=== PATIENT | female | born 1985 | race Caucasian/White ===

== ENCOUNTER 2016-06-11 18:22 | Emergency (ER) | payer OTHER ==
[~2016-06-11] VITALS: Ht 167.6 cm; Wt 81.1 kg
[~2016-06-11 18:22] MED LIST: AUGMENTIN875 MG PO; CHROMAGEN,1 CAPSULE PO; IBUPROFEN800 MG PO; INDOCIN25 MG PO; LIDOCAINE20 MG/1 M5 PO; METHADONE H5 MG/5 ML PO; METHADONE10 MG/1 M1 PO; METHADOSE5 MG PO; MICRONOR0.35 MG PO; MOTRIN800 MG PO; NORCO 5/3251 TABLET PO; PRENATAL TABLE1 EAC3 PO
[2016-06-11] MEDS ORDERED: NAPROSYN500 MG PO (19:26)
[2016-06-11] MEDS ORDERED: CLINDAMYCIN HC300 MG PO (19:26)
[2016-06-11 19:42] VITALS: BP 126/84
== END 2016-06-11 19:42 | disposition home or self-care (01) ==
LOC: EXP 18:22 → EME 18:22 → EXP 19:42
DX: L03.211 Cellulitis of face (principal); K04.7 Periapical abscess without sinus; G89.29 Other chronic pain; F17.200 Nicotine dependence, unspecified, uncomplicated; Z71.6 Tobacco abuse counseling
CPT/HCPCS: 99281; 99283; J1885